=== PATIENT | female | born 1940 | race Caucasian/White ===

== ENCOUNTER 2020-05-05 14:45 | Inpatient (IN) | payer MEDICARE ==
[2020-05-05] MEDS ORDERED: Ondansetron PF 4 MG/2 ML Vial ONE (15:47)
[2020-05-05 15:51] LABS: Hemoglobin 9.6 g/dL (12.0-15.5); Mean Corpuscular Hemoglobin 31.4 pg (27.0-33.0); Platelet Count 149 10x3/uL (150-450); RBC Distribution Width 18.1 % (11.5-14.5); Red Blood Cell (RBC) Count 3.06 10x6/uL (3.90-5.03); White Blood Cell (WBC) Count 7.8 10x3/uL (3.5-10.5)
[2020-05-05 16:03] LABS: ALT (SGPT) 10 U/L (8-55); AST (SGOT) 18 U/L (5-34); Albumin 3.1 g/dL (3.4-4.8); Alkaline Phosphatase 49 U/L (40-110); Anion Gap 13 mmol/L (10-20); BUN (Urea Nitrogen) 25 mg/dL (9.8-20.1); Bilirubin, Total 0.5 mg/dL (0.2-1.2); Calc. Creatinine Clearance 0 mL/min (70-130); Calcium 8.2 mg/dL (7.8-10.44); Carbon Dioxide 35 mmol/L (23-31); Chloride 91 mmol/L (98-107); Globulin 1.9 g/dL (2.4-3.5); Glucose 141 mg/dL (83-110); Magnesium 1.7 mg/dL (1.6-2.6); Sodium 136 mmol/L (136-145)
[2020-05-05 16:09] LABS: Potassium 2.8 mmol/L (3.5-5.1)
[2020-05-05 16:21] LABS: Bilirubin Neg (Negative); Blood, Urine Negative (Negative); Clarity Clear (Clear); Glucose, Urine (Dipstick) Normal (Negative); Ketone, Urine Negative (Negative); Leukocyte Negative (Negative); Nitrite Negative (Negative); Protein, Urine (Dipstick) 15 mg/dl (Neg-Trace); Urobilinogen Normal mg/dL (Less than 2)
[2020-05-05] MEDS ORDERED: Potassium Chloride 20 MEQ/100 ML PREMIX BAG ONE (16:25)
[2020-05-05 17:17] LABS: Band 1 % (5-11); Eosinophils 1 % (0-10); Lymphocytes 12 % (21-51); Monocytes 18 % (0-10); Myelocyte 1 % (0-0); Neutrophil 67 % (42-75)
[2020-05-05 17:18] LABS: Anisocytosis SLIGHT = 6-15 cells (100X) (0-5/hpf); Hypochromia SLIGHT = 6-15 cells (100X) (0-5/hpf); MDiff Complete? YES; Polychromasia SLIGHT = 2-3 cells (100X) (0-2/hpf)
[2020-05-05 17:19] LABS: Large Platelets SLIGHT; Platelet Morphology Comment PLT clumps seen-LOW
[2020-05-05 17:20] LABS: Elliptocytes SLIGHT = 2-5 cells (100X) (0-1/hpf)
[2020-05-05] MEDS ORDERED: Calcium Carbonate 500 MG ChewTAB PO PRN (19:23)
[2020-05-05] MEDS ORDERED: Guaifenesin DM 100-10/5 ML UDCUP PO PRN (19:23)
[2020-05-05] MEDS ORDERED: Sodium Chloride 0.9% 1,000 ML IV SCH (19:30)
[2020-05-05] MEDS ORDERED: clonazePAM 0.5 MG TAB PO PRN (19:39)
[2020-05-05] MEDS ORDERED: Metoclopramide HCl 10 MG/2 ML VIAL IVP SCH (20:30)
[2020-05-05] MEDS: Ondansetron PF 4 MG/2 ML Vial IVP PRN (20:49)
[2020-05-05] MEDS: Zolpidem Tartrate 5 MG TAB PO PRN (20:49)
[2020-05-05] MEDS: Pantoprazole 40 MG VIAL IVP SCH (22:06)
[2020-05-05] MEDS: Potassium Chloride 20 MEQ TAB PO SCH ×2 (22:13→23:57)
[2020-05-05] MEDS: Nicotine 14 MG PATCH TD SCH ×2 (22:14→22:15)
[2020-05-05] MEDS: Sucralfate 1 GM TAB PO SCH (22:14)
[2020-05-06] MEDS: Acetaminophen 325 MG TAB PO PRN (00:49)
[2020-05-06 01:30] LABS: Legionella Urinary Ag Negative (Negative); Strep pneumo Urine Ag NEGATIVE (NEGATIVE)
[2020-05-06 05:44] LABS: ALT (SGPT) 8 U/L (8-55); AST (SGOT) 19 U/L (5-34); Albumin 2.4 g/dL (3.4-4.8); Alkaline Phosphatase 43 U/L (40-110); Anion Gap 14 mmol/L (10-20); BUN (Urea Nitrogen) 26 mg/dL (9.8-20.1); Bilirubin, Total 0.4 mg/dL (0.2-1.2); Calc. Creatinine Clearance 20 mL/min (70-130); Calcium 7.5 mg/dL (7.8-10.44); Carbon Dioxide 29 mmol/L (23-31); Chloride 97 mmol/L (98-107); Globulin 1.7 g/dL (2.4-3.5); Glucose 99 mg/dL (83-110); Magnesium 1.6 mg/dL (1.6-2.6); Potassium 3.3 mmol/L (3.5-5.1); Protein, Total 4.1 g/dL (5.8-8.1); Sodium 137 mmol/L (136-145)
[2020-05-06 06:03] LABS: Hemoglobin 7.3 g/dL (12.0-15.5); Mean Corpuscular HGB CONC 32.2 g/dL (32.0-36.0); Mean Corpuscular Hemoglobin 31.3 pg (27.0-33.0); Mean Corpuscular Volume 97.4 fl (81.6-98.3); Mean Platelet Volume 14.7 fl (7.4-10.4); Platelet Count 122 10x3/uL (150-450); RBC Distribution Width 17.7 % (11.5-14.5); Red Blood Cell (RBC) Count 2.33 10x6/uL (3.90-5.03); White Blood Cell (WBC) Count 8.7 10x3/uL (3.5-10.5)
[2020-05-06] MEDS: Budesonide 0.5 MG/2 ML NEB NEB SCH ×2 (06:57→19:30)
[2020-05-06 07:17] LABS: Band 13 % (5-11); Lymphocytes 9 % (21-51); Monocytes 10 % (0-10); Myelocyte 1 % (0-0); Neutrophil 63 % (42-75); Reactive Lymphocytes 3 % (0-10)
[2020-05-06 07:19] LABS: Anisocytosis SLIGHT = 6-15 cells (100X) (0-5/hpf); Large Platelets MODERATE; Microcytosis SLIGHT = 6-15 cells (100X) (0-5/hpf); Platelet Morphology Comment Appears Decreased
[2020-05-06 07:21] LABS: MDiff Complete? YES; Manual Diff?? YES
[2020-05-06] MEDS ORDERED: GUAIFENESIN SF SOLN 200 MG/10 ML UDCUP PO PRN (07:30)
[2020-05-06] MEDS ORDERED: Loperamide HCl 2 MG CAP PO PRN (07:30)
[2020-05-06] MEDS ORDERED: hydrALAZINE 20 MG/ML VIAL SLOW IVP PRN (07:30)
[2020-05-06] MEDS ORDERED: Sodium Chloride 0.65% Nasal 44 ML BOT EA NARE PRN (07:30)
[2020-05-06] MEDS ORDERED: Bisacodyl 5 MG TAB PO PRN (07:30)
[2020-05-06] MEDS ORDERED: Senokot S 8.6-50 MG TAB PO PRN (07:30)
[2020-05-06] MEDS ORDERED: Cepastat Lozenges 1 LOZ PO PRN (07:30)
[2020-05-06] MEDS ORDERED: Loratadine 10 MG TAB PO PRN (07:30)
[2020-05-06] MEDS ORDERED: FLU VACC QS2020-21(65YR UP)/PF 240 MCG/0.7 ML SYRINGE IM ONE (09:00)
[2020-05-06] MEDS: Nebivolol HCl 5 MG TAB PO SCH (09:14)
[2020-05-06] MEDS: Multivitamin W/ Minerals 1 TAB PO SCH (09:52)
[2020-05-06] MEDS: Enoxaparin Sodium 30 MG/0.3 ML SYRINGE SC SCH (09:52)
[2020-05-06] MEDS: Pantoprazole 40 MG VIAL IVP SCH ×2 (09:52→20:13)
[2020-05-06] MEDS: Sucralfate 1 GM TAB PO SCH ×4 (09:52→20:13)
[2020-05-06] MEDS: Acyclovir 200 mg Capsule PO SCH (09:52)
[2020-05-06 14:23] LABS: SARS-CoV-2 PCR by NAA Not Detected (NotDetected)
[2020-05-06] MEDS ORDERED: Lidocaine 1% PF 5 ML VIAL ONE (14:51)
[2020-05-06 16:12] LABS: Fluid, pH - Pleural Fld Greater than 7.50 (7.60 - 7.66)
[2020-05-06 17:15] LABS: Body Fluid Source Thoracentesis Fluid
[2020-05-06 17:16] LABS: BF Color Yellow; Clarity Clear (Clear); Tube # 1
[2020-05-06] MEDS: Nicotine 14 MG PATCH TD SCH (20:13)
[2020-05-06 21:22] LABS: Pleural Fluid, Protein 1.7 g/dL
[2020-05-07 06:29] LABS: ALT (SGPT) 7 U/L (8-55); AST (SGOT) 25 U/L (5-34); Albumin 2.3 g/dL (3.4-4.8); Alkaline Phosphatase 54 U/L (40-110); Anion Gap 9 mmol/L (10-20); BUN (Urea Nitrogen) 28 mg/dL (9.8-20.1); Bilirubin, Total 0.5 mg/dL (0.2-1.2); Calc. Creatinine Clearance 21 mL/min (70-130); Calcium 7.8 mg/dL (7.8-10.44); Carbon Dioxide 33 mmol/L (23-31); Chloride 95 mmol/L (98-107); Globulin 1.7 g/dL (2.4-3.5); Glucose 113 mg/dL (83-110); Potassium 3.3 mmol/L (3.5-5.1); Sodium 134 mmol/L (136-145)
[2020-05-07 06:35] LABS: #Monocytes 2.9 10x3/uL (0.0-1.1); #Neutrophils 6.2 10x3/uL (1.5-8.4); %Basophils 0.1 % (0.0-2.0); %Eosinophils 0.1 % (0.0-6.0); %Neutrophils 59.6 % (40.0-75.0); Hemoglobin 7.5 g/dL (12.0-15.5); Mean Corpuscular HGB CONC 32.6 g/dL (32.0-36.0); Mean Corpuscular Hemoglobin 31.5 pg (27.0-33.0); Mean Corpuscular Volume 96.6 fl (81.6-98.3); Mean Platelet Volume 14.1 fl (7.4-10.4); Platelet Count 142 10x3/uL (150-450); RBC Distribution Width 18.5 % (11.5-14.5); Red Blood Cell (RBC) Count 2.38 10x6/uL (3.90-5.03); White Blood Cell (WBC) Count 10.3 10x3/uL (3.5-10.5)
[2020-05-07] MEDS: Budesonide 0.5 MG/2 ML NEB NEB SCH ×2 (08:14→19:29)
[2020-05-07] MEDS: Pantoprazole 40 MG VIAL IVP SCH ×2 (09:59→21:16)
[2020-05-07] MEDS: Enoxaparin Sodium 30 MG/0.3 ML SYRINGE SC SCH (09:59)
[2020-05-07] MEDS: Sucralfate 1 GM TAB PO SCH ×4 (10:00→21:21)
[2020-05-07] MEDS: Multivitamin W/ Minerals 1 TAB PO SCH (10:00)
[2020-05-07] MEDS: HYDROcodone/Acetaminophen 5/325 mg Tablet PO PRN (10:00)
[2020-05-07] MEDS: Acyclovir 200 mg Capsule PO SCH (10:01)
[2020-05-07] MEDS: Nebivolol HCl 5 MG TAB PO SCH (10:01)
[2020-05-07] MEDS: Vancomycin HCl 25 MG/ML Oral PO SCH ×2 (10:01→17:41)
[2020-05-07] MEDS: Ondansetron PF 4 MG/2 ML Vial IVP PRN (11:29)
[2020-05-07] MEDS ORDERED: Potassium Chloride 20 MEQ TAB PO SCH (16:15)
[2020-05-07] MEDS: Zolpidem Tartrate 5 MG TAB PO PRN (20:50)
[2020-05-07] MEDS: clonazePAM 0.5 MG TAB PO SCH (21:16)
[2020-05-07] MEDS: Nicotine 14 MG PATCH TD SCH (21:17)
[2020-05-08] MEDS: Vancomycin HCl 25 MG/ML Oral PO SCH ×5 (00:23→22:05)
[2020-05-08 05:43] LABS: Mean Corpuscular HGB CONC 32.7 g/dL (32.0-36.0); Mean Corpuscular Hemoglobin 31.8 pg (27.0-33.0); Mean Corpuscular Volume 97.3 fl (81.6-98.3); Platelet Count 149 10x3/uL (150-450); RBC Distribution Width 18.1 % (11.5-14.5); White Blood Cell (WBC) Count 12.4 10x3/uL (3.5-10.5)
[2020-05-08 06:31] LABS: Band 8 % (5-11); Lymphocytes 7 % (21-51); Metamyelocyte 1 % (0-0); Monocytes 16 % (0-10); Neutrophil 64 % (42-75); Reactive Lymphocytes 4 % (0-10)
[2020-05-08 06:33] LABS: Hypochromia SLIGHT = 6-15 cells (100X) (0-5/hpf); Macrocytosis SLIGHT = 6-15 cells (100X) (0-5/hpf); Polychromasia SLIGHT = 2-3 cells (100X) (0-2/hpf)
[2020-05-08 06:34] LABS: Large Platelets MODERATE; Platelet Morphology Comment Appears Adequate
[2020-05-08 06:35] LABS: Anisocytosis MODERATE=16-30 cells (100X) (0-5/hpf); Microcytosis SLIGHT = 6-15 cells (100X) (0-5/hpf)
[2020-05-08 06:36] LABS: MDiff Complete? YES; Manual Diff?? YES
[2020-05-08] MEDS: Budesonide 0.5 MG/2 ML NEB NEB SCH ×2 (07:12→19:00)
[2020-05-08] MEDS ORDERED: NEBIVOLOL HCL 10 MG PO SCH (09:00)
[2020-05-08] MEDS ORDERED: Amlodipine 5 MG TAB PO SCH (09:00)
[2020-05-08] MEDS: Enoxaparin Sodium 30 MG/0.3 ML SYRINGE SC SCH (09:14)
[2020-05-08] MEDS: Nebivolol HCl 5 MG TAB PO SCH (09:15)
[2020-05-08] MEDS: Multivitamin W/ Minerals 1 TAB PO SCH (09:15)
[2020-05-08] MEDS: Pantoprazole 40 MG VIAL IVP SCH ×2 (09:15→19:49)
[2020-05-08] MEDS: clonazePAM 0.5 MG TAB PO SCH ×2 (09:15→18:03)
[2020-05-08] MEDS: Acyclovir 200 mg Capsule PO SCH (09:15)
[2020-05-08] MEDS: Sucralfate 1 GM TAB PO SCH (09:35)
[2020-05-08] MEDS: cefTRIAXone\\ROCEPHIN 1 GM in Sodium Chloride 0.9% 100 ML IVPB SCH (12:09)
[2020-05-08] MEDS: Ondansetron PF 4 MG/2 ML Vial IVP PRN (15:55)
[2020-05-08 18:58] LABS: Bilirubin Neg (Negative); Blood, Urine 150 (Negative); Clarity Slightly Cloudy (Clear); Glucose, Urine (Dipstick) Normal (Negative); Ketone, Urine 5 mg/dL (Negative); Leukocyte 500 (Negative); Nitrite Positive (Negative); Protein, Urine (Dipstick) 30 mg/dl (Neg-Trace); Urobilinogen Normal mg/dL (Less than 2)
[2020-05-08 19:10] LABS: WBC/HPF 21-50 HPF (0-3)
[2020-05-08 19:12] LABS: Bacteria/HPF 3+ HPF (None Seen); Squamous Epithelial 0-3 HPF (0-3); Transitional Epithelial 0-3 HPF (None Seen)
[2020-05-08 19:14] LABS: Urine Culture Reflex Yes Yes
[2020-05-08] MEDS: Nicotine 14 MG PATCH TD SCH (19:48)
[2020-05-09] MEDS: Vancomycin HCl 25 MG/ML Oral PO SCH ×4 (06:31→20:46)
[2020-05-09] MEDS: clonazePAM 0.5 MG TAB PO SCH ×4 (06:32→20:46)
[2020-05-09] MEDS: Budesonide 0.5 MG/2 ML NEB NEB SCH ×2 (06:50→19:36)
[2020-05-09] MEDS: Ondansetron PF 4 MG/2 ML Vial IVP PRN (07:17)
[2020-05-09 08:35] LABS: Anion Gap 15 mmol/L (10-20); BUN (Urea Nitrogen) 29 mg/dL (9.8-20.1); Calc. Creatinine Clearance 30 mL/min (70-130); Calcium 8.2 mg/dL (7.8-10.44); Carbon Dioxide 30 mmol/L (23-31); Chloride 99 mmol/L (98-107); Glucose 104 mg/dL (83-110); Potassium 4.9 mmol/L (3.5-5.1); Sodium 139 mmol/L (136-145)
[2020-05-09 08:38] LABS: Mean Corpuscular HGB CONC 31.3 g/dL (32.0-36.0); Mean Corpuscular Hemoglobin 29.2 pg (27.0-33.0); Mean Corpuscular Volume 93.3 fl (81.6-98.3); Platelet Count 141 10x3/uL (150-450); RBC Distribution Width 22.2 % (11.5-14.5); Red Blood Cell (RBC) Count 3.42 10x6/uL (3.90-5.03)
[2020-05-09 08:56] LABS: Band 3 % (5-11); Lymphocytes 8 % (21-51); Metamyelocyte 3 % (0-0); Monocytes 15 % (0-10); Myelocyte 1 % (0-0); Neutrophil 68 % (42-75); Reactive Lymphocytes 2 % (0-10)
[2020-05-09 09:08] LABS: Large Platelets SLIGHT; Platelet Morphology Comment Appears Adequate
[2020-05-09 09:10] LABS: Anisocytosis SLIGHT = 6-15 cells (100X) (0-5/hpf); Elliptocytes SLIGHT = 2-5 cells (100X) (0-1/hpf); Hypochromia SLIGHT = 6-15 cells (100X) (0-5/hpf); Macrocytosis SLIGHT = 6-15 cells (100X) (0-5/hpf); Polychromasia SLIGHT = 2-3 cells (100X) (0-2/hpf)
[2020-05-09] MEDS ORDERED: PROPOFOL 20 ML ONE (11:31)
[2020-05-09] MEDS ORDERED: Ketamine 50 MG/ML (10ML VIAL) ONE (11:31)
[2020-05-09] MEDS: Multivitamin W/ Minerals 1 TAB PO SCH (14:04)
[2020-05-09] MEDS: Acyclovir 200 mg Capsule PO SCH (14:05)
[2020-05-09] MEDS: Enoxaparin Sodium 30 MG/0.3 ML SYRINGE SC SCH (14:05)
[2020-05-09] MEDS: Pantoprazole 40 MG VIAL IVP SCH ×2 (14:06→20:46)
[2020-05-09] MEDS: Nebivolol HCl 5 MG TAB PO SCH (14:06)
[2020-05-09] MEDS: cefTRIAXone\\ROCEPHIN 1 GM in Sodium Chloride 0.9% 100 ML IVPB SCH (14:07)
[2020-05-09] MEDS: Nicotine 14 MG PATCH TD SCH (20:46)
[2020-05-09] MEDS: Zolpidem Tartrate 5 MG TAB PO PRN (20:51)
[2020-05-10] MEDS: Vancomycin HCl 25 MG/ML Oral PO SCH ×4 (05:04→19:39)
[2020-05-10 07:07] LABS: Anion Gap 15 mmol/L (10-20); BUN (Urea Nitrogen) 30 mg/dL (9.8-20.1); Calc. Creatinine Clearance 0 mL/min (70-130); Calcium 8.1 mg/dL (7.8-10.44); Carbon Dioxide 29 mmol/L (23-31); Chloride 96 mmol/L (98-107); Glucose 94 mg/dL (83-110); Sodium 136 mmol/L (136-145)
[2020-05-10 07:55] LABS: Mean Corpuscular HGB CONC 30.8 g/dL (32.0-36.0); Mean Corpuscular Hemoglobin 29.2 pg (27.0-33.0); Mean Corpuscular Volume 94.8 fl (81.6-98.3); Platelet Count 141 10x3/uL (150-450); RBC Distribution Width 20.4 % (11.5-14.5); Red Blood Cell (RBC) Count 3.08 10x6/uL (3.90-5.03); White Blood Cell (WBC) Count 9.5 10x3/uL (3.5-10.5)
[2020-05-10] MEDS: clonazePAM 0.5 MG TAB PO SCH ×3 (08:50→21:10)
[2020-05-10] MEDS: Multivitamin W/ Minerals 1 TAB PO SCH (08:50)
[2020-05-10] MEDS: Acyclovir 200 mg Capsule PO SCH (08:50)
[2020-05-10] MEDS: Ergocalciferol 1.25 MG(50,000 UNITS) CAP PO SCH (08:51)
[2020-05-10] MEDS: Pantoprazole 40 MG VIAL IVP SCH ×2 (08:51→21:10)
[2020-05-10] MEDS: Nebivolol HCl 5 MG TAB PO SCH (08:52)
[2020-05-10 09:00] LABS: Band 8 % (5-11); Lymphocytes 5 % (21-51); Metamyelocyte 2 % (0-0); Monocytes 22 % (0-10); Myelocyte 3 % (0-0); Neutrophil 56 % (42-75); Reactive Lymphocytes 1 % (0-10)
[2020-05-10 09:02] LABS: Giant Platelets SLIGHT; Large Platelets SLIGHT; Platelet Morphology Comment Appears Adequate
[2020-05-10 09:04] LABS: Anisocytosis SLIGHT = 6-15 cells (100X) (0-5/hpf); Basophilic Stippling SLIGHT = 1-2 cells (100X) (None Seen); Hypochromia SLIGHT = 6-15 cells (100X) (0-5/hpf); Macrocytosis SLIGHT = 6-15 cells (100X) (0-5/hpf); Microcytosis SLIGHT = 6-15 cells (100X) (0-5/hpf); Polychromasia SLIGHT = 2-3 cells (100X) (0-2/hpf); Target Cells SLIGHT = 2-5 cells (100X) (0-1/hpf)
[2020-05-10] MEDS: Budesonide 0.5 MG/2 ML NEB NEB SCH ×2 (09:48→19:55)
[2020-05-10] MEDS: cefTRIAXone\\ROCEPHIN 1 GM in Sodium Chloride 0.9% 100 ML IVPB SCH (11:53)
[2020-05-10] MEDS: Ondansetron PF 4 MG/2 ML Vial IVP PRN (13:59)
[2020-05-10] MEDS: Hydrocortisone Sod Succ/PF 100 mg/2 ml Vial IVP SCH (16:01)
[2020-05-10] MEDS: Zolpidem Tartrate 5 MG TAB PO PRN (21:27)
[2020-05-11] MEDS: Hydrocortisone Sod Succ/PF 100 mg/2 ml Vial IVP SCH ×3 (01:22→15:00)
[2020-05-11] MEDS: Nicotine 14 MG PATCH TD SCH ×2 (01:28→20:31)
[2020-05-11] MEDS: Vancomycin HCl 25 MG/ML Oral PO SCH ×4 (03:32→20:31)
[2020-05-11] MEDS: Ondansetron PF 4 MG/2 ML Vial IVP PRN ×2 (04:07→09:17)
[2020-05-11 04:49] LABS: Anion Gap 14 mmol/L (10-20); BUN (Urea Nitrogen) 31 mg/dL (9.8-20.1); Calc. Creatinine Clearance 0 mL/min (70-130); Carbon Dioxide 28 mmol/L (23-31); Chloride 97 mmol/L (98-107); Glucose 142 mg/dL (83-110); Potassium 4.8 mmol/L (3.5-5.1); Sodium 134 mmol/L (136-145)
[2020-05-11 05:20] LABS: Hemoglobin 9.7 g/dL (12.0-15.5); Mean Corpuscular HGB CONC 31.8 g/dL (32.0-36.0); Mean Corpuscular Hemoglobin 29.4 pg (27.0-33.0); Mean Corpuscular Volume 92.4 fl (81.6-98.3); Mean Platelet Volume 13.6 fl (7.4-10.4); Platelet Count 162 10x3/uL (150-450); RBC Distribution Width 20.1 % (11.5-14.5); White Blood Cell (WBC) Count 8.3 10x3/uL (3.5-10.5)
[2020-05-11 05:40] LABS: Band 8 % (5-11); Lymphocytes 5 % (21-51); Monocytes 1 % (0-10); Reactive Lymphocytes 8 % (0-10)
[2020-05-11 05:48] LABS: Myelocyte 2 % (0-0); Neutrophil 76 % (42-75)
[2020-05-11 05:50] LABS: Anisocytosis MODERATE=16-30 cells (100X) (0-5/hpf); Macrocytosis SLIGHT = 6-15 cells (100X) (0-5/hpf); Microcytosis SLIGHT = 6-15 cells (100X) (0-5/hpf)
[2020-05-11 05:51] LABS: Ovalocytes SLIGHT = 2-5 cells (100X) (0-1/hpf)
[2020-05-11 05:52] LABS: Large Platelets MODERATE; Platelet Clumps MODERATE; Platelet Morphology Comment Appears Adequate
[2020-05-11 05:53] LABS: MDiff Complete? YES; Manual Diff?? YES
[2020-05-11 05:54] LABS: Hypochromia SLIGHT = 6-15 cells (100X) (0-5/hpf)
[2020-05-11] MEDS: Budesonide 0.5 MG/2 ML NEB NEB SCH ×2 (08:37→19:35)
[2020-05-11] MEDS: Sodium Chloride 0.9% 1,000 ML IV SCH (09:11)
[2020-05-11] MEDS: Nebivolol HCl 5 MG TAB PO SCH (09:15)
[2020-05-11] MEDS: Multivitamin W/ Minerals 1 TAB PO SCH (09:15)
[2020-05-11] MEDS: clonazePAM 0.5 MG TAB PO SCH ×3 (09:15→20:31)
[2020-05-11] MEDS: Pantoprazole 40 MG VIAL IVP SCH ×2 (09:16→20:31)
[2020-05-11] MEDS: Acyclovir 200 mg Capsule PO SCH (09:25)
[2020-05-11] MEDS: cefTRIAXone\\ROCEPHIN 1 GM in Sodium Chloride 0.9% 100 ML IVPB SCH (11:28)
[2020-05-12] MEDS: Sodium Chloride 0.9% 1,000 ML IV SCH (01:00)
[2020-05-12] MEDS: Zolpidem Tartrate 5 MG TAB PO PRN (01:00)
[2020-05-12] MEDS: Vancomycin HCl 25 MG/ML Oral PO SCH ×4 (03:26→20:52)
[2020-05-12 06:39] LABS: Anion Gap 12 mmol/L (10-20); BUN (Urea Nitrogen) 35 mg/dL (9.8-20.1); Calc. Creatinine Clearance 25 mL/min (70-130); Calcium 7.8 mg/dL (7.8-10.44); Carbon Dioxide 29 mmol/L (23-31); Chloride 98 mmol/L (98-107); Glucose 125 mg/dL (83-110); Potassium 4.4 mmol/L (3.5-5.1); Sodium 135 mmol/L (136-145)
[2020-05-12 06:49] LABS: Hemoglobin 9.6 g/dL (12.0-15.5); Mean Corpuscular HGB CONC 30.9 g/dL (32.0-36.0); Mean Corpuscular Hemoglobin 28.7 pg (27.0-33.0); Mean Corpuscular Volume 92.8 fl (81.6-98.3); Platelet Count 169 10x3/uL (150-450); RBC Distribution Width 19.9 % (11.5-14.5); Red Blood Cell (RBC) Count 3.35 10x6/uL (3.90-5.03); White Blood Cell (WBC) Count 9.9 10x3/uL (3.5-10.5)
[2020-05-12 07:39] LABS: MDiff Complete? YES
[2020-05-12 07:43] LABS: Band 5 % (5-11); Lymphocytes 6 % (21-51); Monocytes 7 % (0-10); Neutrophil 80 % (42-75); Reactive Lymphocytes 2 % (0-10)
[2020-05-12 07:44] LABS: Ovalocytes SLIGHT = 2-5 cells (100X) (0-1/hpf)
[2020-05-12 07:45] LABS: Platelet Morphology Comment Appears Adequate
[2020-05-12] MEDS: Nebivolol HCl 5 MG TAB PO SCH (08:22)
[2020-05-12] MEDS: Pantoprazole 40 MG VIAL IVP SCH ×2 (08:22→20:52)
[2020-05-12] MEDS: clonazePAM 0.5 MG TAB PO SCH ×3 (08:22→20:53)
[2020-05-12] MEDS: Multivitamin W/ Minerals 1 TAB PO SCH (08:22)
[2020-05-12] MEDS: Acyclovir 200 mg Capsule PO SCH (08:22)
[2020-05-12] MEDS: Dextrose 5% in Water 1,000 ML IV SCH ×2 (08:22→22:12)
[2020-05-12] MEDS: Budesonide 0.5 MG/2 ML NEB NEB SCH ×2 (11:17→19:16)
[2020-05-12] MEDS: cefTRIAXone\\ROCEPHIN 1 GM in Sodium Chloride 0.9% 100 ML IVPB SCH (11:20)
[2020-05-12] MEDS ORDERED: Dexamethasone 4 mg/ml Vial ONE (12:21)
[2020-05-12] MEDS: Dexamethasone Sod Phosphate 4 MG in Sodium Chloride 0.9% 50 ML IVPB SCH (12:46)
[2020-05-12] MEDS ORDERED: Melatonin 3 MG TAB PO PRN (17:30)
[2020-05-12] MEDS: Tamsulosin HCl 0.4 MG CAP PO SCH (20:53)
[2020-05-12] MEDS: Nicotine 14 MG PATCH TD SCH (20:53)
[2020-05-12] MEDS ORDERED: Melatonin 3 MG TAB PO SCH (22:00)
[2020-05-12] MEDS: Acetaminophen 325 MG TAB PO PRN (22:30)
[2020-05-13] MEDS: Vancomycin HCl 25 MG/ML Oral PO SCH ×4 (03:00→23:25)
[2020-05-13 05:19] LABS: Hemoglobin 9.5 g/dL (12.0-15.5); Mean Corpuscular HGB CONC 31.1 g/dL (32.0-36.0); Mean Corpuscular Hemoglobin 29.6 pg (27.0-33.0); Platelet Count 147 10x3/uL (150-450); RBC Distribution Width 19.1 % (11.5-14.5); Red Blood Cell (RBC) Count 3.21 10x6/uL (3.90-5.03); White Blood Cell (WBC) Count 8.6 10x3/uL (3.5-10.5)
[2020-05-13 05:49] LABS: Anion Gap 12 mmol/L (10-20); BUN (Urea Nitrogen) 35 mg/dL (9.8-20.1); Calc. Creatinine Clearance 24 mL/min (70-130); Calcium 7.7 mg/dL (7.8-10.44); Carbon Dioxide 29 mmol/L (23-31); Chloride 96 mmol/L (98-107); Glucose 152 mg/dL (83-110); Potassium 4.6 mmol/L (3.5-5.1); Sodium 132 mmol/L (136-145)
[2020-05-13 06:56] LABS: MDiff Complete? YES
[2020-05-13 06:59] LABS: Band 5 % (5-11); Lymphocytes 4 % (21-51); Monocytes 2 % (0-10); Myelocyte 1 % (0-0); Neutrophil 83 % (42-75); Reactive Lymphocytes 5 % (0-10)
[2020-05-13 07:00] LABS: Ovalocytes SLIGHT = 2-5 cells (100X) (0-1/hpf); Platelet Morphology Comment Appears Adequate
[2020-05-13] MEDS: Budesonide 0.5 MG/2 ML NEB NEB SCH ×2 (07:05→18:30)
[2020-05-13] MEDS: Ondansetron PF 4 MG/2 ML Vial IVP PRN (08:14)
[2020-05-13] MEDS: Multivitamin W/ Minerals 1 TAB PO SCH (08:15)
[2020-05-13] MEDS: clonazePAM 0.5 MG TAB PO SCH ×3 (08:15→21:39)
[2020-05-13] MEDS: Acyclovir 200 mg Capsule PO SCH (08:15)
[2020-05-13] MEDS: Nebivolol HCl 5 MG TAB PO SCH ×2 (08:15→08:31)
[2020-05-13] MEDS: Pantoprazole 40 MG VIAL IVP SCH ×2 (08:16→21:39)
[2020-05-13] MEDS: HYDROcodone/Acetaminophen 5/325 mg Tablet PO PRN (08:22)
[2020-05-13] MEDS: cefTRIAXone\\ROCEPHIN 1 GM in Sodium Chloride 0.9% 100 ML IVPB SCH (11:47)
[2020-05-13] MEDS: Dexamethasone Sod Phosphate 4 MG in Sodium Chloride 0.9% 50 ML IVPB SCH (13:50)
[2020-05-13] MEDS: Sodium Chloride 0.9% 1,000 ML IV SCH (13:50)
[2020-05-13] MEDS: Dronabinol 2.5 MG CAP PO SCH (15:43)
[2020-05-13] MEDS: Tamsulosin HCl 0.4 MG CAP PO SCH (21:39)
[2020-05-13] MEDS: Nicotine 14 MG PATCH TD SCH (23:25)
[2020-05-14] MEDS: Vancomycin HCl 25 MG/ML Oral PO SCH ×4 (04:53→21:28)
[2020-05-14 08:09] LABS: Anion Gap 17 mmol/L (10-20); BUN (Urea Nitrogen) 34 mg/dL (9.8-20.1); Calc. Creatinine Clearance 26 mL/min (70-130); Calcium 7.5 mg/dL (7.8-10.44); Carbon Dioxide 20 mmol/L (23-31); Chloride 99 mmol/L (98-107); Glucose 119 mg/dL (83-110); Potassium 4.8 mmol/L (3.5-5.1); Sodium 131 mmol/L (136-145)
[2020-05-14] MEDS: Dronabinol 2.5 MG CAP PO SCH ×2 (09:07→18:30)
[2020-05-14] MEDS: Sodium Chloride 0.9% 1,000 ML IV SCH (09:08)
[2020-05-14] MEDS: clonazePAM 0.5 MG TAB PO SCH ×2 (09:08→18:30)
[2020-05-14] MEDS: Pantoprazole 40 MG VIAL IVP SCH (09:08)
[2020-05-14] MEDS: Multivitamin W/ Minerals 1 TAB PO SCH (09:08)
[2020-05-14] MEDS: Nebivolol HCl 5 MG TAB PO SCH (09:08)
[2020-05-14 10:23] LABS: Hemoglobin 9.4 g/dL (12.0-15.5); Mean Corpuscular Hemoglobin 29.8 pg (27.0-33.0); Mean Corpuscular Volume 93.3 fl (81.6-98.3); Platelet Count 166 10x3/uL (150-450); RBC Distribution Width 19.1 % (11.5-14.5); Red Blood Cell (RBC) Count 3.15 10x6/uL (3.90-5.03); White Blood Cell (WBC) Count 10.9 10x3/uL (3.5-10.5)
[2020-05-14] MEDS: Budesonide 0.5 MG/2 ML NEB NEB SCH ×2 (10:27→19:35)
[2020-05-14 11:13] LABS: Band 3 % (5-11); Lymphocytes 11 % (21-51); MDiff Complete? YES; Metamyelocyte 1 % (0-0); Monocytes 5 % (0-10); Neutrophil 79 % (42-75); Reactive Lymphocytes 1 % (0-10)
[2020-05-14 11:14] LABS: Anisocytosis SLIGHT = 6-15 cells (100X) (0-5/hpf); Platelet Morphology Comment Appears Adequate
[2020-05-14] MEDS: cefTRIAXone\\ROCEPHIN 1 GM in Sodium Chloride 0.9% 100 ML IVPB SCH (14:08)
[2020-05-14] MEDS: Dexamethasone Sod Phosphate 4 MG in Sodium Chloride 0.9% 50 ML IVPB SCH (18:30)
[2020-05-15] MEDS: clonazePAM 0.5 MG TAB PO SCH ×4 (00:02→20:33)
[2020-05-15] MEDS: Pantoprazole 40 MG VIAL IVP SCH ×3 (00:02→20:33)
[2020-05-15] MEDS: Nicotine 14 MG PATCH TD SCH ×2 (00:02→20:33)
[2020-05-15] MEDS: Tamsulosin HCl 0.4 MG CAP PO SCH ×2 (00:02→20:33)
[2020-05-15] MEDS: Vancomycin HCl 25 MG/ML Oral PO SCH ×4 (02:52→20:33)
[2020-05-15 08:11] LABS: Anion Gap 16 mmol/L (10-20); BUN (Urea Nitrogen) 34 mg/dL (9.8-20.1); Calc. Creatinine Clearance 28 mL/min (70-130); Calcium 7.2 mg/dL (7.8-10.44); Carbon Dioxide 22 mmol/L (23-31); Chloride 100 mmol/L (98-107); Glucose 131 mg/dL (83-110); Magnesium 2.2 mg/dL (1.6-2.6); Potassium 5.7 mmol/L (3.5-5.1); Sodium 132 mmol/L (136-145)
[2020-05-15] MEDS: Ergocalciferol 1.25 MG(50,000 UNITS) CAP PO SCH (08:23)
[2020-05-15] MEDS: Multivitamin W/ Minerals 1 TAB PO SCH (08:23)
[2020-05-15] MEDS: Nebivolol HCl 5 MG TAB PO SCH (08:27)
[2020-05-15] MEDS: Dronabinol 2.5 MG CAP PO SCH ×2 (08:35→18:14)
[2020-05-15] MEDS: Budesonide 0.5 MG/2 ML NEB NEB SCH ×2 (09:34→21:18)
[2020-05-15 09:47] LABS: Hemoglobin 9.4 g/dL (12.0-15.5); Mean Corpuscular HGB CONC 30.8 g/dL (32.0-36.0); Mean Corpuscular Hemoglobin 28.9 pg (27.0-33.0); Mean Corpuscular Volume 93.8 fl (81.6-98.3); Mean Platelet Volume 12.9 fl (7.4-10.4); Platelet Count 156 10x3/uL (150-450); RBC Distribution Width 19.3 % (11.5-14.5); Red Blood Cell (RBC) Count 3.25 10x6/uL (3.90-5.03); White Blood Cell (WBC) Count 8.2 10x3/uL (3.5-10.5)
[2020-05-15 12:24] LABS: Band 2 % (5-11); MDiff Complete? YES; Neutrophil 85 % (42-75)
[2020-05-15 12:25] LABS: Lymphocytes 4 % (21-51)
[2020-05-15 12:27] LABS: Metamyelocyte 1 % (0-0); Monocytes 6 % (0-10); Reactive Lymphocytes 2 % (0-10)
[2020-05-15 12:29] LABS: Anisocytosis SLIGHT = 6-15 cells (100X) (0-5/hpf); Hypochromia SLIGHT = 6-15 cells (100X) (0-5/hpf)
[2020-05-15 12:30] LABS: Platelet Morphology Comment Appears Adequate
[2020-05-15] MEDS: Dexamethasone Sod Phosphate 4 MG in Sodium Chloride 0.9% 50 ML IVPB SCH (13:46)
[2020-05-15] MEDS: cefTRIAXone\\ROCEPHIN 1 GM in Sodium Chloride 0.9% 100 ML IVPB SCH (13:50)
[2020-05-15] MEDS: Ondansetron PF 4 MG/2 ML Vial IVP PRN (18:07)
[2020-05-16] MEDS: Vancomycin HCl 25 MG/ML Oral PO SCH ×4 (03:05→20:28)
[2020-05-16 06:31] LABS: Anion Gap 15 mmol/L (10-20); BUN (Urea Nitrogen) 37 mg/dL (9.8-20.1); Calc. Creatinine Clearance 26 mL/min (70-130); Calcium 7.5 mg/dL (7.8-10.44); Carbon Dioxide 26 mmol/L (23-31); Chloride 98 mmol/L (98-107); Glucose 134 mg/dL (83-110); Magnesium 2.3 mg/dL (1.6-2.6); Potassium 4.9 mmol/L (3.5-5.1); Sodium 134 mmol/L (136-145)
[2020-05-16 06:44] LABS: Hemoglobin 9.5 g/dL (12.0-15.5); Mean Corpuscular HGB CONC 31.6 g/dL (32.0-36.0); Mean Corpuscular Hemoglobin 29.3 pg (27.0-33.0); Mean Corpuscular Volume 92.9 fl (81.6-98.3); Mean Platelet Volume 13.3 fl (7.4-10.4); Platelet Count 162 10x3/uL (150-450); RBC Distribution Width 19.5 % (11.5-14.5); Red Blood Cell (RBC) Count 3.24 10x6/uL (3.90-5.03); White Blood Cell (WBC) Count 12.3 10x3/uL (3.5-10.5)
[2020-05-16 07:10] LABS: MDiff Complete? YES
[2020-05-16 07:25] LABS: Lymphocytes 8 % (21-51); Reactive Lymphocytes 1 % (0-10)
[2020-05-16 07:26] LABS: Band 4 % (5-11)
[2020-05-16 07:27] LABS: Monocytes 7 % (0-10); Neutrophil 80 % (42-75)
[2020-05-16 07:28] LABS: Anisocytosis SLIGHT = 6-15 cells (100X) (0-5/hpf); Platelet Morphology Comment Appears Adequate
[2020-05-16] MEDS: Budesonide 0.5 MG/2 ML NEB NEB SCH ×2 (08:33→20:27)
[2020-05-16] MEDS: clonazePAM 0.5 MG TAB PO SCH ×3 (09:02→20:28)
[2020-05-16] MEDS: Dronabinol 2.5 MG CAP PO SCH ×2 (09:02→15:28)
[2020-05-16] MEDS: Nebivolol HCl 5 MG TAB PO SCH (09:02)
[2020-05-16] MEDS: Multivitamin W/ Minerals 1 TAB PO SCH (09:03)
[2020-05-16] MEDS: Pantoprazole 40 MG VIAL IVP SCH ×2 (09:06→20:28)
[2020-05-16] MEDS: cefTRIAXone\\ROCEPHIN 1 GM in Sodium Chloride 0.9% 100 ML IVPB SCH (12:29)
[2020-05-16] MEDS: Dexamethasone Sod Phosphate 4 MG in Sodium Chloride 0.9% 50 ML IVPB SCH (14:07)
[2020-05-16] MEDS: Nicotine 14 MG PATCH TD SCH (20:28)
[2020-05-16] MEDS: Tamsulosin HCl 0.4 MG CAP PO SCH (20:28)
[2020-05-17] MEDS: Vancomycin HCl 25 MG/ML Oral PO SCH ×4 (03:00→20:57)
[2020-05-17 05:24] LABS: Hemoglobin 8.8 g/dL (12.0-15.5); Mean Corpuscular HGB CONC 31.7 g/dL (32.0-36.0); Mean Corpuscular Hemoglobin 29.8 pg (27.0-33.0); Mean Corpuscular Volume 94.2 fl (81.6-98.3); Mean Platelet Volume 12.8 fl (7.4-10.4); Platelet Count 148 10x3/uL (150-450); Red Blood Cell (RBC) Count 2.95 10x6/uL (3.90-5.03); White Blood Cell (WBC) Count 11.9 10x3/uL (3.5-10.5)
[2020-05-17 05:35] LABS: Anion Gap 12 mmol/L (10-20); BUN (Urea Nitrogen) 40 mg/dL (9.8-20.1); Calc. Creatinine Clearance 25 mL/min (70-130); Calcium 7.6 mg/dL (7.8-10.44); Carbon Dioxide 28 mmol/L (23-31); Chloride 99 mmol/L (98-107); Glucose 113 mg/dL (83-110); Magnesium 2.3 mg/dL (1.6-2.6); Potassium 5.1 mmol/L (3.5-5.1); Sodium 134 mmol/L (136-145)
[2020-05-17 05:49] LABS: MDiff Complete? YES
[2020-05-17 05:55] LABS: Band 3 % (5-11); Lymphocytes 9 % (21-51); Monocytes 2 % (0-10); Neutrophil 86 % (42-75)
[2020-05-17 05:57] LABS: Anisocytosis MODERATE=16-30 cells (100X) (0-5/hpf); Large Platelets SLIGHT; Platelet Morphology Comment Appears Adequate; Poikilocytosis SLIGHT = 6-15 cells (100X) (0-5/hpf)
[2020-05-17] MEDS: Budesonide 0.5 MG/2 ML NEB NEB SCH ×2 (07:35→19:00)
[2020-05-17] MEDS: Multivitamin W/ Minerals 1 TAB PO SCH (09:41)
[2020-05-17] MEDS: Pantoprazole 40 MG VIAL IVP SCH ×3 (09:41→21:00)
[2020-05-17] MEDS: clonazePAM 0.5 MG TAB PO SCH ×3 (09:41→20:58)
[2020-05-17] MEDS: Dronabinol 2.5 MG CAP PO SCH ×2 (09:41→18:05)
[2020-05-17] MEDS: Nebivolol HCl 5 MG TAB PO SCH (09:41)
[2020-05-17] MEDS: cefTRIAXone\\ROCEPHIN 1 GM in Sodium Chloride 0.9% 100 ML IVPB SCH (11:52)
[2020-05-17] MEDS: Dexamethasone Sod Phosphate 4 MG in Sodium Chloride 0.9% 50 ML IVPB SCH (11:52)
[2020-05-17] MEDS: Tamsulosin HCl 0.4 MG CAP PO SCH (20:58)
[2020-05-17] MEDS: Nicotine 14 MG PATCH TD SCH (21:53)
[2020-05-18] MEDS: Vancomycin HCl 25 MG/ML Oral PO SCH ×4 (03:00→20:46)
[2020-05-18 06:50] LABS: Mean Corpuscular HGB CONC 31.1 g/dL (32.0-36.0); Mean Corpuscular Hemoglobin 29.2 pg (27.0-33.0); Mean Corpuscular Volume 93.8 fl (81.6-98.3); Platelet Count 136 10x3/uL (150-450); RBC Distribution Width 19.9 % (11.5-14.5); Red Blood Cell (RBC) Count 3.08 10x6/uL (3.90-5.03); White Blood Cell (WBC) Count 16.5 10x3/uL (3.5-10.5)
[2020-05-18 07:01] LABS: Anion Gap 14 mmol/L (10-20); BUN (Urea Nitrogen) 45 mg/dL (9.8-20.1); Calc. Creatinine Clearance 0 mL/min (70-130); Carbon Dioxide 28 mmol/L (23-31); Chloride 98 mmol/L (98-107); Glucose 98 mg/dL (83-110); Magnesium 2.5 mg/dL (1.6-2.6); Sodium 135 mmol/L (136-145)
[2020-05-18] MEDS: Budesonide 0.5 MG/2 ML NEB NEB SCH ×2 (07:21→19:09)
[2020-05-18 07:49] LABS: MDiff Complete? YES
[2020-05-18 07:53] LABS: Lymphocytes 7 % (21-51); Monocytes 5 % (0-10)
[2020-05-18 07:54] LABS: Band 3 % (5-11); Neutrophil 85 % (42-75); Platelet Morphology Comment Appears Adequate
[2020-05-18] MEDS: Pantoprazole 40 MG VIAL IVP SCH ×3 (09:11→21:29)
[2020-05-18] MEDS: Multivitamin W/ Minerals 1 TAB PO SCH (09:11)
[2020-05-18] MEDS: Nebivolol HCl 5 MG TAB PO SCH (09:11)
[2020-05-18] MEDS: clonazePAM 0.5 MG TAB PO SCH ×3 (09:11→21:28)
[2020-05-18] MEDS: Dronabinol 2.5 MG CAP PO SCH ×2 (09:25→16:24)
[2020-05-18] MEDS: Dexamethasone Sod Phosphate 4 MG in Sodium Chloride 0.9% 50 ML IVPB SCH (11:00)
[2020-05-18] MEDS: cefTRIAXone\\ROCEPHIN 1 GM in Sodium Chloride 0.9% 100 ML IVPB SCH (11:00)
[2020-05-18 12:16] VITALS: BMI 25.1
[2020-05-18] MEDS: Acetaminophen 325 MG TAB PO PRN (14:21)
[2020-05-18 15:13] LABS: Fungus Stain Final report (.)
[2020-05-18] MEDS ORDERED: Ondansetron ODT 4 MG TAB SL PRN (15:25)
[2020-05-18] MEDS: Nicotine 14 MG PATCH TD SCH (21:28)
[2020-05-18] MEDS: Tamsulosin HCl 0.4 MG CAP PO SCH (21:29)
[2020-05-19] MEDS: Vancomycin HCl 25 MG/ML Oral PO SCH ×3 (03:08→15:28)
[2020-05-19 06:48] LABS: Hemoglobin 9.3 g/dL (12.0-15.5); Mean Corpuscular HGB CONC 30.6 g/dL (32.0-36.0); Mean Corpuscular Hemoglobin 29.3 pg (27.0-33.0); Mean Corpuscular Volume 95.9 fl (81.6-98.3); Mean Platelet Volume 13.2 fl (7.4-10.4); Platelet Count 143 10x3/uL (150-450); RBC Distribution Width 19.7 % (11.5-14.5); Red Blood Cell (RBC) Count 3.17 10x6/uL (3.90-5.03); White Blood Cell (WBC) Count 15.6 10x3/uL (3.5-10.5)
[2020-05-19 06:57] LABS: ALT (SGPT) 11 U/L (8-55); AST (SGOT) 23 U/L (5-34); Albumin 2.5 g/dL (3.4-4.8); Alkaline Phosphatase 59 U/L (40-110); Anion Gap 14 mmol/L (10-20); BUN (Urea Nitrogen) 48 mg/dL (9.8-20.1); Bilirubin, Total 0.2 mg/dL (0.2-1.2); Calc. Creatinine Clearance 24 mL/min (70-130); Calcium 8.3 mg/dL (7.8-10.44); Carbon Dioxide 26 mmol/L (23-31); Chloride 100 mmol/L (98-107); Globulin 1.9 g/dL (2.4-3.5); Glucose 106 mg/dL (83-110); Magnesium 2.7 mg/dL (1.6-2.6); Potassium 5.4 mmol/L (3.5-5.1); Protein, Total 4.4 g/dL (5.8-8.1); Sodium 135 mmol/L (136-145)
[2020-05-19] MEDS: Budesonide 0.5 MG/2 ML NEB NEB SCH (07:54)
[2020-05-19 07:57] LABS: MDiff Complete? YES
[2020-05-19 08:00] LABS: Band 6 % (5-11); Lymphocytes 5 % (21-51); Metamyelocyte 1 % (0-0); Monocytes 3 % (0-10); Neutrophil 85 % (42-75)
[2020-05-19 08:01] LABS: Anisocytosis SLIGHT = 6-15 cells (100X) (0-5/hpf)
[2020-05-19 08:02] LABS: Platelet Morphology Comment Appears Adequate
[2020-05-19] MEDS: Multivitamin W/ Minerals 1 TAB PO SCH (08:46)
[2020-05-19] MEDS: Nebivolol HCl 5 MG TAB PO SCH (08:46)
[2020-05-19] MEDS: Dronabinol 2.5 MG CAP PO SCH ×2 (08:47→17:55)
[2020-05-19] MEDS: Pantoprazole 40 MG VIAL IVP SCH (08:48)
[2020-05-19] MEDS: clonazePAM 0.5 MG TAB PO SCH ×2 (08:48→15:28)
[2020-05-19] MEDS ORDERED: Sodium Chloride 0.9% 1,000 ML IV SCH (09:30)
[2020-05-19 13:27] LABS: Anion Gap 10 mmol/L (10-20); BUN (Urea Nitrogen) 48 mg/dL (9.8-20.1); Calc. Creatinine Clearance 24 mL/min (70-130); Calcium 8.3 mg/dL (7.8-10.44); Carbon Dioxide 31 mmol/L (23-31); Chloride 97 mmol/L (98-107); Glucose 110 mg/dL (83-110); Potassium 5.1 mmol/L (3.5-5.1); Sodium 133 mmol/L (136-145)
[2020-05-19] MEDS: Dexamethasone Sod Phosphate 4 MG in Sodium Chloride 0.9% 50 ML IVPB SCH (15:18)
[2020-05-19 17:03] VITALS: BP 106/56; TEMP 98
[2020-06-06 08:37] LABS: Fungus Culture Final report (.)
== END 2020-05-19 18:14 | disposition hospice, home (50) | DRG 186 ==
LOC: CSHERS 14:45 → CSHTELE 20:06
PROVIDERS: ADMIT Student in an Organized Health Care Education/Training Program; ATTEND Internal Medicine
PROC: 0W9B3ZZ Drainage of Left Pleural Cavity, Percutaneous Approach (ICD-10-PCS; 2020-05-06)
PROC: 30233N1 Transfusion of Nonautologous Red Blood Cells into Peripheral Vein, Percutaneous Approach (ICD-10-PCS; principal; 2020-05-08)
PROC: 0DB98ZX Excision of Duodenum, Via Natural or Artificial Opening Endoscopic, Diagnostic (ICD-10-PCS; 2020-05-09)
PROC: 0DB68ZX Excision of Stomach, Via Natural or Artificial Opening Endoscopic, Diagnostic (ICD-10-PCS; 2020-05-09)
DX: J90 Pleural effusion, not elsewhere classified (principal); J96.01 Acute respiratory failure with hypoxia; J18.9 Pneumonia, unspecified organism; N17.9 Acute kidney failure, unspecified; A04.72 Enterocolitis due to Clostridium difficile, not specified as recurrent; J98.11 Atelectasis; E86.0 Dehydration; R33.9 Retention of urine, unspecified; D63.8 Anemia in other chronic diseases classified elsewhere; Z20.822 Contact with and (suspected) exposure to COVID-19; F41.9 Anxiety disorder, unspecified; E87.6 Hypokalemia; R62.7 Adult failure to thrive; Z68.25 Body mass index [BMI] 25.0-25.9, adult; Z88.2 Allergy status to sulfonamides; Z85.79 Personal history of other malignant neoplasms of lymphoid, hematopoietic and related tissues; I10 Essential (primary) hypertension; F17.210 Nicotine dependence, cigarettes, uncomplicated; K44.9 Diaphragmatic hernia without obstruction or gangrene
CPT/HCPCS: 36415; 36416; 36430; 51701; 71045; 71250; 74177; 76770; 76942; 78306; 80048; 80053; 81001; 81003; 82150; 82270; 82607; 82746; 82945; 83605; 83615; 83630; 83735; 83880; 83986; 84145; 84157; 84443; 84484; 85025; 85379; 86850; 86900; 86901; 87040; 87045; 87046; 87070; 87077; 87081; 87086; 87116; 87149; 87186; 87205; 87206; 87324; 87427; 87449; 87635; 87899; 88112; 88305; 88341; 88342; 88365; 89051; 93005; 93306; 93970; 94640; 94760; 96365; 96366; 96375; A9503; C9113; J0696; J1650; J1720; J2405; J2704; J2765; J3475; J3480; J3490; J7050; J7070; J7626; P9016; Q0162; Q0167; U0003; U0005